=== PATIENT | male | born 1965 | race Caucasian/White ===

== ENCOUNTER 2016-12-08 06:39 | Inpatient (IN) | payer OTHER ==
[2016-11-20 12:50] VITALS: BMI 29.0
--- NOTE | 2016-11-20 13:26 | PAT Medication Instructions ---
Service Date Nov 20, 2016. Current Home Medication List Coenzyme Q10 (Ubidecarenone) (Coq10), 200 MG PO QAM Fish Oil ([place]-3), 1 CAP PO BID Meloxicam (Mobic), 15 MG PO QAM Simvastatin (Zocor), 20 MG PO QPM [Dr Rhina Najera], 1 DOSE PO UD PRN for AILY Medication Instructions For Your Scheduled Surgery Dr Rhina Najera 1 DOSE PO UD PRN for DAILY (take as directed) - Hold the following medications 10 days prior to surgery: Coenzyme Q10 (Ubidecarenone) (Coq10), 200 MG PO QAM Fish Oil ([place]-3), 1 CAP PO BID Meloxicam (Mobic), 15 MG PO QAM (per surgeon instructions) - Take the following medications as scheduled the night before surgery: Simvastatin (Zocor), 20 MG PO QPM If you have any questions please call us at [phone] or [phone] ( Pauline) or [phone]
--- NOTE | 2016-11-20 14:08 | DIAGNOSTIC IMAGING REPORT ---
CHEST PREADMISSION(PA/LAT) CLINICAL HISTORY: Preoperative chest COMPARISON STUDY: No previous studies for comparison. FINDINGS: The heart is the upper limits of normal in size. There is no lobar consolidation. There is no failure. There are linear areas of scar/atelectatic change at the left lung base. There is a 9 mm right midlung zone pulmonary nodule.[ IMPRESSION: 9 mm right midlung zone point nodule. A CT scan the chest is recommended to determine whether this is calcified. Electronically signed by: Lobo Weaver M.D. 11/20/2016 2:07 PM Dictated Date/Time: 11/20/2016 2:06 PM
[2016-11-20 14:44] LABS: URINE APPEARANCE CLEAR (CLEAR); URINE BILIRUBIN NEG (NEG); URINE COLOR DK YELLOW; URINE NITRITE NEG (NEG); URINE PH 5.5 (4.5-7.5); URINE SPECIFIC GRAVITY 1.015 (1.000-1.030); UROBILINOGEN NEG (NEG); ZZUR CULT IF INDIC CLEAN CATCH NO
[2016-11-20 14:57] LABS: MANUAL MICROSCOPIC REQUIRED? NO; REVIEW REQ? NO
--- NOTE | 2016-12-04 09:15 | HISTORY & PHYSICAL EXAMINATION ---
DATE OF ADMISSION: 12/08/2016 CHIEF COMPLAINT: Right hip pain. HISTORY OF PRESENT ILLNESS: Mr. Kennedy is a 51-year-old male with a 1 year history of right hip pain. He rates his pain an 8/10. He has pain with his daily activities. He has limited standing and walking tolerance. Pain is worse with weightbearing. The patient has had previous epidural injections with minimal relief. He has had home exercise program and NSAIDs without relief. He has failed conservative treatment and is scheduled for right hip replacement. PAST MEDICAL HISTORY: Hypercholesterolemia, history of DVT, history of bilateral PE. He denies heart disease or diabetes. PAST SURGICAL HISTORY: Hernia repair, bunionectomy, vein stripping and carpal tunnel release. SOCIAL HISTORY: The patient denies alcohol or tobacco use. He lives in a single story home. He is and works in maintenance. FAMILY HISTORY: Negative for DVT, PE. MEDICATIONS: Fish oil 1000 mg twice daily, CoQ10 200 mg daily, meloxicam 15 mg daily, simvastatin 20 mg daily, multivitamin 1 daily. ALLERGIES: None. REVIEW OF SYSTEMS: See HPI. Ten other systems reviewed, all negative. PHYSICAL EXAMINATION: VITAL SIGNS: Height 6 foot 0. Weight 220 pounds. BMI is 30. GENERAL: This is a well-developed, well-nourished male who is alert and oriented x3. Mood and affect are appropriate. HEAD, EYES, EARS, NOSE, AND THROAT: Normocephalic, atraumatic. Mucous membranes are moist and intact. NECK: Supple without lymphadenopathy. HEART: Regular rate and rhythm without murmurs, rubs or gallops. LUNGS: Clear to auscultation without wheezes or rhonchi. ABDOMEN: Soft and nontender. Bowel sounds are equal and active. EXTREMITIES: No ecchymosis, redness or warmth. Thigh and calf are soft and nontender. Log roll of the hip reproduces pain in the groin. Range of motion is decreased. He is neurovascularly intact with +5/5 strength. X-RAY EXAMINATION: AP and lateral views show joint space narrowing and osteophyte formation. IMPRESSION: Degenerative joint disease, right hip. PLAN: The patient will be admitted for either a right total hip arthroplasty versus a right hip resurfacing. We will likely put him on more aggressive DVT prophylaxis due to his history of DVT and PE. He will have home physical therapy. PCP is Dr. Jac Irvin at [facility].
[2016-12-08] VITALS (8 sets, daily range): BP systolic 100–148; BP diastolic 59–87; PULSE 58–71; TEMP 36.3–36.8; O2SAT 93–96; Ht 185.4 cm; Wt 99.8 kg
[~2016-12-08] VITALS: Ht 185.4 cm; Wt 99.8 kg
[~2016-12-08 06:39] MED LIST: ACETAMINOPHEN 500 MG TAB PO SCH; BUPIVACAINE 0.5 % 5 MG/1 ML PF 10ML VIAL ONE; CEFAZOLIN 2000 MG/60 ML D5W 60 ML IV SCH; COEN1CAP7 PO; CeleBREX 200 MG CAP PO SCH; DEXAMETHASONE 4 MG TAB PO SCH; FAMOTIDINE 20 MG TAB PO SCH; GABAPENTIN 300 MG CAP PO SCH; LACTATED RINGER'S 1000ML 1,000 ML IV SCH; LACTATED RINGER'S 1000ML 500 ML IV SCH; LACTATED RINGER'S 1000ML IV SCH; MELO7.5T5 PO; METOCLOPRAMIDE HCL 10 MG TAB PO SCH; OMEG10007 PO; OXYCODONE HCL 10 MG TABCR (OXYCONTIN) PO SCH; POLYMYXIN B SULFATE 100,000 UNITS in NSS 100ML IR SCH; ROPIVACAINE 5MG/ML 30 ML 150 MG, BUPIVACAINE/EPINEPHR 0.5% MPF 30 ML, KETOROLAC TROMETH... INFIL SCH; SIMV20TA2 PO; TRANEXAMIC ACID INJ 1,000 MG in SODIUM CHLORIDE 0.9% 100ML 100 ML IV SCH; VANCOMYCIN INJ 400 MG in NSS 100ML IR SCH; [UNRECOGNIZED DRUG - REMARK] PO
--- NOTE | 2016-12-08 07:29 | Surgery Consultation ---
Consultation Date of Service Dec 08, 2016. Chief Complaint Hx of PE and DVT History of Present Illness The patient is a 51 year old male who is here for knee surgery. Previously he had a bunionectomy and developed DVT along with bilateral PE's. He is not on anticoagulation at this time. He well not be able to be on anticoagulation immediate post op from his knee. He is admitted for a removable filter placement. Allergies Coded Allergies: No Known Allergies (Unverified , 12/08/16) Home Medications Scheduled Coenzyme Q10 (Ubidecarenone) (Coq10), 200 MG PO QAM Fish Oil ([place]-3), 1 CAP PO BID Meloxicam (Mobic), 15 MG PO QAM Simvastatin (Zocor), 20 MG PO QPM Scheduled PRN [Dr Rhina Najera], 1 DOSE PO UD PRN for AILY Surgical / Medical History Hx Cardiac Surgery: No Hx Abdominal Surgery: Yes (APPENDECTOMY,HERNIA) Hx Cancer Surgery: No Hx Thoracic Surgery: No Hx Orthopedic: Yes (R BUNIONECTOMY X 2, R CTR, L CTR) Hx Urinary Tract Surgery: No HX Other Surgery: Yes (SEE TEXT) Past Medical/Surgical History: High Cholesterol, Pulmonary Emboli, Thrombophlebitis Social History Smoking Status: Never Smoker Hx Alcohol Use - Type & Amnt: No Hx Substance Use -Type & Amnt: No Review of Systems Constitutional: No chills, No diaphoresis, No fatigue, No fever, No malaise, No problem reported, No sweats, No weakness, No weight gain, No weight loss Respiratory: No GRAY, No PND, No cough, No cyanosis, No dyspnea, No hemoptysis, No orthopnea, No problem reported, No short of breath, No sputum production, No stridor, No wheezing Cardiovascular: No chest pain, No chest pressure, No chest tightness, No cyanosis, No diaphoresis, No edema, No intermittent claudication, No lightheadedness, No mumur, No orthopnea, No palpitations, No paroxysmal nocturnal dyspnea, No problem reported, No syncope Gastrointestinal: No abdominal pain, No anorexia, No appetite changes, No belching, No constipation, No diarrhea, No dysphagia, No flatulence, No food intolerance, No heartburn, No hematemesis, No hematochezia, No hemorrhoids, No indigestion, No nausea, No problem reported, No rectal bleeding, No stool changes, No vomiting Genitourinary - Male: No difficulty urinating, No hematuria, No impotence, No penile discharge, No penile itching, No problem reported, No rash, No testicular pain, No testicular swelling Musculoskeletal: + joint pain Neurologic: No LOC, No dizziness, No headache, No lethargy, No memory loss, No numbness, No paresthesia, No pre-existing deficit, No problem reported, No seizures, No tics, No tingling, No tremors, No vertigo, No weakness Physical Exam Constitutional: General Apperance: heathly-appearing, well-nourished, well-developed Level of Distress: NAD Ambulation: ambulating normally Psychiatric: Mental Status: active & alert, normal mood, normal affect Orientation: oriented except where noted, to time, to place, to person Memory: recent memory normal, remote memory normal Lungs: Auscultation: breath sounds normal Cardiovascular: Heart Auscultation: RRR Peripheral Pulses: Radial Pulse: normal on the left, normal on the right Femoral Pulse: normal on the left, normal on the right Abdomen: Inspection & Palpation: soft Musculoskeletal: normal Extremities: Upper Right: no cyanosis, no edema, no varicosities, no palpable cord, no clubbing, no ulcers, no mottling Upper Left: no cyanosis, no edema, no palpable cord, no clubbing, no ulcers , no mottling Lower Right: no cyanosis, no edema, no varicosities, no palpable cord, no clubbing, no ulcers, no mottling Lower Left: no cyanosis, no edema, no varicosities, no palpable cord, no clubbing, no ulcers, no mottling Neurologic: Cranial Nerves: grossly intact Sensation: grossly intact Assessment and Plan Imp: Arthritis knee joint Hx of DVT and PE Plan: Patient is to have a filter placed prior to his knee surgery. I have discussed the risks options and benefits of the procedure with the patient. The patient understands the risks options and benefits and agrees to the procedure.
[2016-12-08] MEDS ORDERED: NURSING VERBAL MED ORDER ONE (07:45)
[2016-12-08] MEDS ORDERED: FENTANYL CITRATE INJ 50 MCG/1 ML 2 ML VIAL ONE ×2 (07:45→11:41)
[2016-12-08] MEDS ORDERED: MIDAZOLAM HCL 1 MG/ML 2ML VIAL ONE ×3 (07:46→11:41)
[2016-12-08] MEDS ORDERED: CEFAZOLIN SOD 1000MG/55 ML D5W IV ONE (07:51)
[2016-12-08] MEDS ORDERED: LIDOCAINE HCL 1% 20 ML VIAL INJ ONE (08:20)
[2016-12-08] MEDS ORDERED: IODIXANOL (VISIPAQUE) 270 MG/ML 50ML XX ONE (08:28)
--- NOTE | 2016-12-08 08:32 | [facility] Post Operative Brief Note ---
Immediate Operative Summary Operative Date Dec 08, 2016. Pre-Operative Diagnosis History of DVT and PE, pre op knee surgery Post-Operative Diagnosis same Procedure(s) Performed Insertion Of Inferior Vena Cava Filter, Right Jugular Approach, Surgeon Dr. Castillo Mushroom Laborer Surgeon(s) none Estimated Blood Loss 0 Findings filter in infrarenal IVC in upright position Specimens none Anesthesia Local Complication(s) None Disposition
--- NOTE | 2016-12-08 08:48 | DIAGNOSTIC IMAGING REPORT ---
DATE OF PROCEDURE: 12/08/2016 PREOPERATIVE DIAGNOSES: History of deep venous thrombosis and bilateral pulmonary emboli. He is preop for knee surgery. POSTOPERATIVE DIAGNOSES: Same. PROCEDURE: Insertion of inferior vena cava filter, jugular approach. SURGEON: Dr. Castillo. ANESTHETIC: Local. PROCEDURE INDICATIONS: The patient is a 51-year-old gentleman for knee surgery who 5 years ago had a bunionectomy with subsequent deep venous thrombosis and bilateral pulmonary emboli. There is concern about him having being immobile and developing more clots during the period where he cannot be anticoagulated after his knee surgery, therefore, a temporary filter was recommended. He understood the risks, options and benefits and agreed to go ahead with the procedure. The patient was taken to the angiogram suite, placed in the supine position after the right side of the neck was prepped and draped in a sterile manner. The ultrasound was used to locate the right internal jugular vein. The right internal jugular vein was then punctured under direct ultrasound imaging, and a guidewire passed centrally. A wire was passed into the inferior vena cava. The puncture site was then dilated and the filter sheath was inserted. The vena cavogram was then performed. This showed no evidence of cava clot. The cava was of good size. The filter was then inserted and deployed in a nice upright position below the renal veins. The sheath was then pulled. Pressure was applied. Adequate hemostasis was obtained. Sterile dressing were applied to the wound. The patient left the angiogram suite in good condition. He tolerated the procedure well.
--- NOTE | 2016-12-08 08:53 | Medical Student: [facility] ---
Immediate Operative Summary Operative Date Dec 08, 2016. Pre-Operative Diagnosis Contraindication to anticoagulation therapy Post-Operative Diagnosis same Procedure(s) Performed Placement of retrievable IVC filter, R. IJV approach w ultrasound localization. Positioning of filter confirmed by fluoroscopy. Surgeon Dr. Castillo Community Relations Director Surgeon(s) none Estimated Blood Loss 0cc Findings filter in infrarenal IVC Specimens none Anesthesia local Complication(s) None Disposition Recovery Room / PACU
--- NOTE | 2016-12-08 11:21 | History & Physical Bridge Note ---
H&P Re-Evaluation Bridge Note: I have examined the patient, reviewed the History & Physical and in the interval since the performance of the History & Physical I have noted the following changes of clinical significance: No changes noted
[2016-12-08] MEDS ORDERED: NURSING VERBAL MED ORDER STA (11:32)
[2016-12-08] MEDS ORDERED: LIDOCAINE HCL 2% 2 ML VIAL (20MG/ML) ONE (11:40)
[2016-12-08] MEDS ORDERED: PROPOFOL IV EMULSION 10 MG/ML 20 ML VIAL IV ONE (11:40)
[2016-12-08] MEDS ORDERED: LACTATED RINGER'S 1000ML 1,000 ML IV PRN (11:49)
[2016-12-08] MEDS ORDERED: FENTANYL CITRATE INJ 50 MCG/1 ML 2 ML VIAL IV PRN (12:00)
[2016-12-08] MEDS ORDERED: ONDANSETRON INJ 2 MG/ML 2 ML VIAL IV PRN ×2 (12:00→15:00)
[2016-12-08] MEDS ORDERED: BACITRACIN 50000 UNIT VIAL ONE (12:02)
[2016-12-08] MEDS ORDERED: ORTHO JOINT ANESTHETIC ONE (12:02)
[2016-12-08] MEDS ORDERED: POVIDONE-IODINE OP SOLN 30 ML BTL ONE (12:02)
[2016-12-08] MEDS ORDERED: LABETALOL HCL IV 5 MG/ML 20ML IV ONE (14:17)
--- NOTE | 2016-12-08 14:42 | DIAGNOSTIC IMAGING REPORT ---
RIGHT HIP UNILATERAL 1 VIEW CLINICAL HISTORY: RT TOTAL ANTERIOR Right COMPARISON STUDY: None. FINDINGS: Fluoroscopy time 25 seconds. Single fluoroscopic spot image. Right total hip arthroplasty. The visualized hardware appears intact. No fracture or dislocation. IMPRESSION: Fluoroscopy provided for a right total hip arthroplasty. Electronically signed by: Jaya Griffith M.D. 12/08/2016 2:40 PM Dictated Date/Time: 12/08/2016 2:40 PM
--- NOTE | 2016-12-08 14:54 | [facility] Post Operative Brief Note ---
Immediate Operative Summary Operative Date Dec 08, 2016. Pre-Operative Diagnosis Right Hip Degenerative Joint Disease Post-Operative Diagnosis Right Hip Degenerative Joint Disease Procedure(s) Performed Right Total Hip Arthroplasty, Direct Anterior Approach Surgeon Dr. Jarek Lantigua Entry Level Management Surgeon(s) Van Bedolla PA-C Estimated Blood Loss 350ML Findings DJD Specimens A: Right Femoral Head Complication(s) None Disposition Recovery Room / PACU
[2016-12-08] MEDS ORDERED: ALUMINUM/MAGNESIUM/SIMETH (MAALOX MAX) 30 ML UDC PO PRN (15:00)
[2016-12-08] MEDS ORDERED: ZOLPIDEM TARTRATE 5 MG TAB PO PRN (15:00)
[2016-12-08] MEDS ORDERED: SOD PHOSPHATE/SOD BIPHOSPHATE ENEMA 132 ML BTL PR PRN (15:00)
[2016-12-08] MEDS ORDERED: METOCLOPRAMIDE HCL INJ 5 MG/ML 2 ML VIAL IV PRN (15:00)
[2016-12-08] MEDS ORDERED: MoRPHine SULFATE 2 MG/ML CARP IV PRN (15:00)
[2016-12-08] MEDS ORDERED: MAGNESIUM HYDROXIDE SUSP 30 ML UDC PO PRN (15:00)
[2016-12-08] MEDS ORDERED: DiphenhydrAMINE HCL 50 MG/ML VIAL IV PRN (15:00)
[2016-12-08] MEDS ORDERED: BISACODYL 10 MG SUPP PR PRN (15:00)
[2016-12-08] MEDS ORDERED: TRAMADOL HCL 50 MG TAB PO PRN (15:00)
[2016-12-08] MEDS ORDERED: OXYCODONE HCL IR 5 MG TAB (IMMEDIATE RELEASE) PO PRN (15:00)
--- NOTE | 2016-12-08 15:22 | Anesthesiology Progress Note ---
Anesthesia Post Op Note Date & Time Dec 08, 2016 at 15:21 Vital Signs Pain Intensity: 0 Vital Signs Past 12 Hours Date Time Temp Pulse Resp B/P Pulse Ox O2 Delivery O2 Flow Rate FiO2 12/08/16 15:05 58 12 94/57 95 Nasal Cannula 4 12/08/16 14:55 59 12 83/57 94 Nasal Cannula 4 12/08/16 14:46 37.2 78 12 103/60 94 Nasal Cannula 4 12/08/16 09:15 62 16 137/84 92 Room Air 12/08/16 09:00 55 16 124/83 93 Room Air 12/08/16 08:48 64 16 138/94 93 Room Air 12/08/16 07:12 36.7 71 18 143/87 93 Room Air Notes Mental Status: alert / awake / arousable, participated in evaluation Pt Amnestic to Procedure: Yes Nausea / Vomiting: adequately controlled Pain: adequately controlled Airway Patency, RR, SpO2: stable & adequate BP & HR: stable & adequate Hydration State: stable & adequate Anesthetic Complications: no major complications apparent
--- NOTE | 2016-12-08 15:38 | OPERATIVE REPORT ---
DATE OF OPERATION: 12/08/2016 PREOPERATIVE DIAGNOSIS: Degenerative arthritis, right hip. POSTOPERATIVE DIAGNOSIS: Same. PROCEDURE: Right total hip replacement. SURGEON: Jarek Lantigua MD AIR DIRECTOR: None. ANESTHESIA: Spinal. BLOOD LOSS: 350 mL. REPLACEMENT FLUIDS: 2300 mL crystalloid. DRAINS: Hemovac x2. CULTURES: None. COMPLICATIONS: None. COMPONENTS USED: [employer] Nephew Polar hip system: Acetabulum size 58, femur size 3 high offset, femoral head +8, 36 mm. DESCRIPTION OF PROCEDURE: Following satisfactory spinal, the patient was supine. The right leg was placed in the traction device and the left leg in the well leg hernandez. The right leg was prepared with ChloraPrep and draped sterilely. Following a surgical time-out, an anterior approach was performed in the interval between the sartorius and tensor muscles. The circumflex femoral vessels were identified and ligated, but there was general oozing throughout the procedure. An anterior capsulotomy was performed. The exposure was difficult at this time. The femoral neck and head were trimmed and removed. The acetabular retractor was placed. Acetabular reaming was completed and a 58 shell was impacted under fluoroscopic guidance. The shell was difficult to get into position. It did not seem to want to seat and after repeat reaming, the shell was secured using 3 dome screws. Local anesthetic was placed and after irrigation, the poly liner was placed. The femur was then placed in a position of external rotation, extension and adduction. Femoral canal was difficult also. It was prepared up to a size 3. The patient had an extremely long neck and the +8 show the best leg length on fluoroscopy. The hip was dislocated. The trial component removed. The final implant was placed and the hip was reduced fluoroscopy confirming the position. A Betadine soak was performed. After 5 minutes, the Betadine was irrigated. The capsule was closed with 1 Vicryl interrupted. A drain was placed. After irrigation, the muscle fascia was closed with a running suture of 1 Vicryl. The subcutaneous tissues with 2-0 Vicryl and the skin with a running subcuticular stitch of 3-0 V-Loc. Dermabond and a dry dressing were applied. It should be noted that upon taking the drapes off, the patient's leg lengths were of unequal height. The bed was much lower than it was anticipated at the beginning of the case. This may have led to some of the difficulty. The reason for the change in height is uncertain as height was set appropriately preoperative. I attest to the content of the Intraoperative Record and any orders documented therein. Any exceptions are noted below. SAMARAD
--- NOTE | 2016-12-08 15:49 | DIAGNOSTIC IMAGING REPORT ---
RIGHT PELVIS/UNILATERAL HIP 1 VIEW CLINICAL HISTORY: IN PACU - A/P PELVIS and LATERAL HIP INCLUDING ALL OF IMPLANT Right COMPARISON: None. DISCUSSION: Total right hip replacement. Prosthetic is in good position. Surgical drains and expected changes within the soft tissues are noted. IMPRESSION: Anatomic alignment status post total right hip replacement Electronically signed by: Vini Mcgregor M.D. 12/08/2016 3:47 PM Dictated Date/Time: 12/08/2016 3:47 PM
[2016-12-08] MEDS: D5W AND 1/2NSS + 20MEQ KCL 1,000 ML IV SCH (17:09)
[2016-12-08] MEDS: KETOROLAC TROMETHAMINE 30 MG/ML VIAL IV. SCH (17:44)
[2016-12-08] MEDS: CEFAZOLIN IV 2,000 MG in DEXTROSE 5% 50ML 50 ML IV SCH (19:58)
[2016-12-08] MEDS: SIMVASTATIN 20 MG TAB PO SCH (21:04)
[2016-12-08] MEDS: SENNA 8.6 MG TAB PO SCH (21:04)
[2016-12-08] MEDS: ACETAMINOPHEN 500 MG TAB PO SCH (21:55)
[2016-12-08] MEDS ORDERED: SODIUM CHLORIDE 0.9% 500ML 500 ML IV SCH (22:30)
--- NOTE | 2016-12-08 23:01 | DIAGNOSTIC IMAGING REPORT ---
CT HEAD WITHOUT CONTRAST (CT) CLINICAL HISTORY: Head pain. Head trauma COMPARISON STUDY: No previous studies for comparison. TECHNIQUE: Axial CT of the brain is performed from the vertex to the skull base. IV contrast was not administered for this examination. CT DOSE: 965.19 mGycm FINDINGS: No intra or extra-axial mass lesions are visualized. There is no CT evidence of acute cortical infarction. There is no evidence of midline shift. There is no acute hemorrhage. No calvarial fractures are visualized. There is a nonspecific subtle left parietal white matter hypodensity, likely on a small vessel basis. There is no evidence of pathologic ventricular dilatation. There is no evidence of acute sinusitis There is prominent calcification/ossification of the falx anteriorly. IMPRESSION: No acute intracranial findings Electronically signed by: Lobo Weaver M.D. 12/08/2016 10:59 PM Dictated Date/Time: 12/08/2016 10:57 PM
--- NOTE | 2016-12-08 23:20 | Progress Note ---
Progress Note Date of Service Dec 08, 2016. Progress Note Code juancarlos was called around 10 PM after the patient had felt dizzy and fallen in the bathroom . Per RN notes, had fallen a second time while she was trying to help him. He had lost consciousness for a few minutes but had soon regained consciousness and was awake and alert and oriented. He sustained a laceration to his forehead and and an abrasion to his nose. On examination, he was answering questions appropriately and denied any chest pain, shortness of breath, palpitations which had occurred prior to the fall. He stated that he felt dizzy. No seizure-like activity was witnessed prior to fall. He is status post right hip replacement and denied any pain, deformity of the operated limb. Denied any headaches, blurriness of vision, weakness, numbness or tingling He denied any recent anticoagulant use though he had used Coumadin about 5 years ago for DVTs. His vitals were stable with blood pressure 117/85, heart rate of 70 and satting over 95. Physical exam: Awake alert and oriented -Lungs clear bilaterally - RRR, S1 and S2 heard - Abdomen soft and nontender -MSK: Normal-appearing extremities with no deformity. EKG was obtained which was normal, blood sugar was checked which was 147. Head CT was ordered which showed no acute changes. A/P: Fall secondary to dizziness likely vasovagal Head CT negative ,EKG normal - Scalp laceration repaired with sutures -Reassured Resident Tracking Resident Involvement: Photograph Inspector Coverage Note Care Provided: [facility] Medicine
[2016-12-09] MEDS: KETOROLAC TROMETHAMINE 30 MG/ML VIAL IV. SCH ×5 (00:37→23:51)
[2016-12-09 00:40] VITALS: BP 127/72; PULSE 66
[2016-12-09] MEDS ORDERED: LIDOCAINE HCL 1% 20 ML VIAL ONE (01:01)
[2016-12-09 03:18] VITALS: BP 112/64; PULSE 68; TEMP 36.6; O2SAT 94
[2016-12-09] MEDS: CEFAZOLIN IV 2,000 MG in DEXTROSE 5% 50ML 50 ML IV SCH (03:59)
[2016-12-09] MEDS: D5W AND 1/2NSS + 20MEQ KCL 1,000 ML IV SCH ×2 (03:59→12:04)
--- NOTE | 2016-12-09 04:24 | Procedure Note ---
Procedure Note Date of Service Dec 09, 2016. Procedure Note Laceration repair: Location: forehead Total length: 2 cm Complexity: simple Verbal consent was obtained after the risks and benefits were explained, including but not limited to bleeding, scarring, infection, pain, and bone/joint /nerve damage. At this time, the risks of the procedure are less than the risks of NOT performing the procedure. A time out was taken and the correct patient and site identified.The target area was anesthetized with 2 ml of 1% lidocaine without epinephrine. CThe wound edges were approximated using 2, 5-0 simple interrupted nylon sutures. Hemostasis and excellent approximation was achieved. sterile dressing applied. . No complications and the patient tolerated the procedure well. Resident Tracking Resident Involvement: Stand Up Forklift Operator Coverage Note Care Provided: Adult [facility] Medicine
[2016-12-09 06:02] LABS: HEMATOCRIT 32.9 % (42-52); MEAN CELL VOLUME 88.4 fL (80-100); MEAN CORPUSCULAR HEMOGLOBIN 29.8 pg (25-34); MEAN CORPUSCULAR HGB CONC 33.7 g/dl (32-36); MEAN PLATELET VOLUME 10.5 fL (7.4-10.4); PLATELET COUNT 138 K/uL (130-400); RED BLOOD COUNT 3.72 M/uL (4.7-6.1); WHITE BLOOD COUNT 11.37 K/uL (4.8-10.8)
[2016-12-09] MEDS: ACETAMINOPHEN 500 MG TAB PO SCH ×3 (06:02→21:57)
[2016-12-09 06:35] LABS: COMPLETE YES; EOS % 0.1 %; IG% 0.2 %; LYMPH % 7.9 %; MONO % 10.6 %; NEUT % 81.2 %
[2016-12-09 06:37] LABS: BUN/CREATININE RATIO 17.8 (10-20); CALCIUM 7.9 mg/dl (8.5-10.1); CREATININE 0.85 mg/dl (0.60-1.40); POTASSIUM 4.2 mmol/L (3.5-5.1)
[2016-12-09 06:53] VITALS: BP 116/65; PULSE 78; TEMP 36.7; O2SAT 95
--- NOTE | 2016-12-09 07:04 | Discharge Instructions ---
Discharge Instructions Date of Service Dec 09, 2016. Admission Reason for Admission: Right Hip Degenerative Arthritis Discharge Discharge Diagnosis / Problem: Right Hip Djd Discharge Goals Goal(s): Decrease discomfort, Improve function Activity Recommendations Activity Limitations: per Instructions/Follow-up section Weightbearing Status: Right weightbearing (as tolerated) . Instructions / Follow-Up Instructions / Follow-Up ACTIVITY RECOMMENDATIONS: SELF CARE INSTRUCTIONS AFTER TOTAL HIP REPLACEMENT : Direct Anterior Approach Until the incision and soft tissues around your hip have healed, there is a possibility that the hip prosthesis could dislocate. A. Hip flexion ( Up & Down out of chair or steps ) may be difficult. This is normal. B. Numbness in front of the thigh is also normal for a few weeks. C. Use hand rails when walking on stairs. D. Wear low heeled shoes with non-slip soles. E. Be sure that your floors are free of things that could trip you - throw rugs , electrical cords, small objects. Avoid wet and waxed floors, especially with crutches and canes. F. Try to walk several times a day with rest periods between. G. Continue with all the exercises taught to you in the hospital. Again, make walking a part of your daily routine. SPECIAL CARE INSTRUCTIONS: VERY IMPORTANT TO READ AND REVIEW A. You may still be at risk for phlebitis and blood clots. 1. Wear surgical stockings (RAKEL hose) for 2 weeks after surgery to improve circulation and reduce swelling. 2. Take Lovenox 40mg injection for 2 weeks or as directed by your doctor. After 2 weeks, stop the Lovenox and start Aspirin 81mg once in the morning and once in the evening for 2 weeks. These are your blood thinners. 3. High risk patients may be prescribed a stronger blood thinner if necessary. 4. If you are on Coumadin normally, your family doctor/ washhouse hand should monitor your blood work. Expect a phone call the day of or the day after bloodwork is drawn to adjust your dosage. B. You must take antibiotics before having dental work, bladder, bowel and other surgery. Your doctor will provide you with a permanent card to carry describing precautions. C. Call [facility] if you have a fever, redness or swelling around the incision, cloudy drainage from incision, or sudden increase in pain in your hip, not relieved by your regular pain medication. D. Please call the office at if you have any concerns or questions about your operation or recovery. * YOU MAY SHOWER, NO TUB BATHS UNTIL CLEARED BY YOUR DOCTOR. - Keep an extra close eye on the top portion of your incision. Be sure to keep clean & dry. * WEAR RAKEL HOSE 20 HOURS PER DAY FOR 2 WEEKS. * YOU MAY PROGRESS FROM A WALKER, TO A CANE, TO INDEPENDENT AT YOUR OWN PACE. * MOST PATIENTS WILL HAVE HOME NURSING FOR THERAPY. IF YOU DECIDE TO DO OUTPATIENT PHYSICAL THERAPY, PLEASE SCHEDULE THIS 3 TIMES PER WEEK. * DERMABOND Prineo- This is a mesh tape dressing that is covered with glue. It should remain in place until the incision is properly healed, usually 10-14 days. This dressing is designed to naturally slough off. You may trim the excess mesh tape as it peels off. Incision may be briefly wet in a shower. Dry immediately by blotting with a clean, dry towel. Do not bath or swim until instructed by your doctor. Do not scratch, rub, or pick at the dressing. Do not apply any topical ointments or lotions until dressing is completely removed and/or instructed by your doctor. There may be a small piece of suture material at one end of your incision. Do not pull or trim this. If it is bothersome or catching on clothing, you may cover it with a band-aid. FOLLOW UP VISIT: If appointment is not already scheduled: Please call [facility] to make a follow-up appointment for 2 weeks after your surgery at . Current Hospital Diet Patient's current hospital diet: Regular Diet Discharge Diet Recommended Diet: Regular Diet Procedures Procedures Performed: Right Total Hip Arthroplasty, Direct Anterior Approach Pending Studies Studies pending at discharge: no Medical Emergencies . Who to Call and When: Medical Emergencies: If at any time you feel your situation is an emergency, please call 911 immediately. . Non-Emergent Contact Non-Emergency issues call your: Surgeon Call Non-Emergent contact if: temperature is above 101.5, your pain is not controlled, your pain is worsening, wound has increased drainage, wound has increased redness . "Provider Documentation" section prepared by Van Bedolla. VTE Core Measure Inpt VTE Proph given/why not?: Enoxaparin (Lovenox)SQ, T.E.D. Stockings, SCD's [place] Drug Monitoring Program Search Results: patient reviewed within database, no issues identified
--- NOTE | 2016-12-09 08:02 | Anesthesiology Progress Note ---
Anesthesia Post Op Note Date & Time Dec 09, 2016 at 07:58 Vital Signs Pain Intensity: 0.0 Vital Signs Past 12 Hours Date Time Temp Pulse Resp B/P Pulse Ox O2 Delivery O2 Flow Rate FiO2 12/09/16 07:52 Room Air 12/09/16 06:53 36.7 78 19 116/65 95 Room Air 12/09/16 03:18 36.6 68 16 112/64 94 Room Air 12/09/16 00:40 66 127/72 12/08/16 23:30 Room Air 12/08/16 23:07 36.5 67 17 108/65 95 Room Air 12/08/16 22:20 36.4 71 18 117/62 95 Room Air Notes Mental Status: alert / awake / arousable, participated in evaluation Pt Amnestic to Procedure: Yes Nausea / Vomiting: adequately controlled Pain: adequately controlled Airway Patency, RR, SpO2: stable & adequate BP & HR: stable & adequate Hydration State: stable & adequate Anesthetic Complications: no major complications apparent Anesthetic Complications: Patient passed out in bathroom last night. Walked to bathroom, called for nurse , felt lightheaded, passed out. Hit head and nose. Was sent to the ER for sutures. No further episodes. Patients states he feels better today.
--- NOTE | 2016-12-09 08:03 | Orthopedic Progress Note ---
Orthopedic Progress Note Date of Service Dec 09, 2016. Subjective Post OP Day: 1 Reports: feeling well, Denies: SOB, calf pain, chest pain, light headedness, nausea / vomiting Additional Notes: CODE BETSEY WAS CALLED LAST NIGHT. PATIENT FELL. HE SUFFERED A HEAD LACERATION AND AN ABRASION TO THE NOSE. NO NEW COMPLAINTS OF HIP PAIN. MEDICINE WAS CONSULTED FOR EVALUATION. WORKUP NEGATIVE. LACERATION WAS REPAIRED. Objective calves soft nontender, N/V intact, hip located, dressing C/D/I, A&O x3, toes mobile, hemovac drainage (650/350CC PER SHIFT) Date Time Temp Pulse Resp B/P Pulse Ox O2 Delivery O2 Flow Rate FiO2 12/09/16 07:52 Room Air 12/09/16 06:53 36.7 78 19 116/65 95 Room Air 12/09/16 03:18 36.6 68 16 112/64 94 Room Air 12/09/16 00:40 66 127/72 12/08/16 23:30 Room Air 12/08/16 23:07 36.5 67 17 108/65 95 Room Air 12/08/16 22:20 36.4 71 18 117/62 95 Room Air 12/08/16 19:10 36.5 60 18 130/80 95 Room Air 12/08/16 18:10 36.4 60 18 148/85 96 Nasal Cannula 2.0 12/08/16 17:13 36.3 58 18 118/68 96 Nasal Cannula 2.0 12/08/16 16:42 36.3 58 18 100/62 94 Nasal Cannula 2.0 12/08/16 16:37 Nasal Cannula 2.0 12/08/16 16:10 95 Nasal Cannula 2.0 12/08/16 16:10 36.8 62 14 105/59 95 Nasal Cannula 2.0 12/08/16 15:55 36.8 75 16 102/61 94 Nasal Cannula 2 12/08/16 15:45 58 16 103/55 94 Nasal Cannula 2 12/08/16 15:35 66 16 100/57 96 Nasal Cannula 2 12/08/16 15:25 66 16 105/59 96 Nasal Cannula 2 12/08/16 15:15 55 12 96/58 95 Nasal Cannula 4 12/08/16 15:05 58 12 94/57 95 Nasal Cannula 4 12/08/16 14:55 59 12 83/57 94 Nasal Cannula 4 12/08/16 14:46 37.2 78 12 103/60 94 Nasal Cannula 4 12/08/16 09:15 62 16 137/84 92 Room Air 12/08/16 09:00 55 16 124/83 93 Room Air 12/08/16 08:48 64 16 138/94 93 Room Air Laboratory Results 24 Hours: Test 12/09/16 05:27 White Blood Count 11.37 K/uL Red Blood Count 3.72 M/uL Hemoglobin 11.1 g/dL Hematocrit 32.9 % Mean Corpuscular Volume 88.4 fL Mean Corpuscular Hemoglobin 29.8 pg Mean Corpuscular Hemoglobin Concent 33.7 g/dl Platelet Count 138 K/uL Mean Platelet Volume 10.5 fL Neutrophils (%) (Auto) 81.2 % Lymphocytes (%) (Auto) 7.9 % Monocytes (%) (Auto) 10.6 % Eosinophils (%) (Auto) 0.1 % Basophils (%) (Auto) 0.0 % Neutrophils # (Auto) 9.23 K/uL Lymphocytes # (Auto) 0.90 K/uL Monocytes # (Auto) 1.21 K/uL Eosinophils # (Auto) 0.01 K/uL Basophils # (Auto) 0.00 K/uL Assessment & Plan Assessment: POD#1 SP RIGHT ANABEL, DIRECT ANTERIOR SYNCOPAL EPISODE HISTORY OF DVT, NEG FACTOR 5. Plan: [facility]- [facility] VAS[facility]. PATIENT EDUCATED ON GETTING UP WITH ASSISTANCE. HISTORY OF DVT- IVC FILTER PLACED YESTERDAY. ON LOVENOX. Inhouse Planning Pain Management: Celebrex, PO Tylenol, Oxy IR DVT Prophylaxis: TEDs, SCDs, Lovenox (40MG DAILY) Discharge Planning Discharge Planning: home with home health ([facility]. [facility]
[2016-12-09] MEDS: MULTIVITAMIN TAB PO SCH (08:38)
[2016-12-09] MEDS: PANTOprazole SOD 40 MG TAB PO SCH (08:38)
[2016-12-09] MEDS: ENOXAPARIN 40 MG/0.4 ML SYR SQ SCH (09:34)
[2016-12-09 11:26] VITALS: BP 119/66; PULSE 73; O2SAT 100
[2016-12-09 15:19] VITALS: BP 125/74; PULSE 86; TEMP 36.8; O2SAT 98
[2016-12-09] MEDS: SIMVASTATIN 20 MG TAB PO SCH (21:56)
[2016-12-09] MEDS: SENNA 8.6 MG TAB PO SCH (21:57)
[2016-12-09 23:11] VITALS: BP 119/68; PULSE 92; TEMP 37; O2SAT 94
[2016-12-10] MEDS: ACETAMINOPHEN 500 MG TAB PO SCH (05:34)
[2016-12-10] MEDS: KETOROLAC TROMETHAMINE 30 MG/ML VIAL IV. SCH ×2 (05:34→12:34)
[2016-12-10 06:19] VITALS: BP 127/71; PULSE 83; TEMP 36.8; O2SAT 93
[2016-12-10] MEDS: PANTOprazole SOD 40 MG TAB PO SCH (07:47)
[2016-12-10] MEDS: MULTIVITAMIN TAB PO SCH (07:47)
[2016-12-10] MEDS: ENOXAPARIN 40 MG/0.4 ML SYR SQ SCH (07:47)
[2016-12-10] MEDS ORDERED: RXC5 PO (07:57)
[2016-12-10] MEDS ORDERED: ACET-1138 PO (07:57)
[2016-12-10] MEDS ORDERED: SNK PO (07:57)
[2016-12-10] MEDS ORDERED: CLB200 PO (07:57)
[2016-12-10] MEDS ORDERED: ONDA8TAB6 PO (07:57)
[2016-12-10] MEDS ORDERED: LVNIS40 SQ (07:59)
--- NOTE | 2016-12-10 08:00 | Orthopedic Progress Note ---
Orthopedic Progress Note Date of Service Dec 10, 2016. Subjective Post OP Day: 2 Reports: feeling well, Denies: complaints Additional Notes: denies Left hip pain Objective calves soft nontender, N/V intact, hip located, incision C/D/I, A&O x3, toes mobile Head laceration benign. Date Time Temp Pulse Resp B/P Pulse Ox O2 Delivery O2 Flow Rate FiO2 12/10/16 06:19 36.8 83 18 127/71 93 Room Air 12/09/16 23:11 37.0 92 18 119/68 94 Room Air 12/09/16 19:30 Room Air 12/09/16 15:19 36.8 86 16 125/74 98 Room Air 12/09/16 11:26 73 100 Assessment & Plan Assessment: POD#2 SP RIGHT ANABEL, DIRECT ANTERIOR SYNCOPAL EPISODE HISTORY OF DVT, NEG FACTOR 5. Plan: SYNCOPE- [facility] VASOVAGAL. PATIENT EDUCATED ON GETTING UP WITH ASSISTANCE. HISTORY OF DVT- IVC FILTER PLACED YESTERDAY. ON LOVENOX. Progressing in PT. Feeling well. Plan for dc to home today. Denies LH when ambulating. Inhouse Planning Pain Management: Celebrex, PO Tylenol, Oxy IR DVT Prophylaxis: TEDs, SCDs, Lovenox (40MG DAILY) Discharge Planning Discharge Planning: home with home health ([facility]. [facility] .) Pain Management: Celebrex, PO Tylenol, Oxy IR DVT Prophylaxis: TEDs, Lovenox Therapy: Physical Therapy
[2016-12-10 08:59] VITALS: BP 160/71
[2016-12-10 09:26] VITALS: BP 160/71; PULSE 83; TEMP 36.8; O2SAT 93
[2016-12-10] MEDS ORDERED: CeleBREX 200 MG CAP PO SCH (21:00)
--- NOTE | 2016-12-16 12:34 | DISCHARGE SUMMARY ---
DISCHARGE DIAGNOSIS: Degenerative joint disease, right hip. SECONDARY DIAGNOSES: Hypercholesterolemia, history of deep venous thrombosis, history of bilateral pulmonary embolism. CONSULTATIONS: Dr. Denis Castillo and Dr. Maritza Mistry. COMPLICATIONS: Vasovagal dizziness with resultant passing out and falling to the floor in the bathroom sustaining a laceration to the forehead on the evening of 12/08/2016. PROCEDURES: 1. Insertion of inferior vena cava filter, right jugular approach by Dr. Castillo on 12/08/2016. 2. Right total hip arthroplasty, direct anterior approach by Dr. Ross Lantigua on 12/08/2016. 3. Laceration repair of forehead by Dr. Mistry on the evening of 12/08/2016. BRIEF HISTORY: As dictated in history and physical. HOSPITAL SUMMARY: The patient was admitted on the above date and had the above-noted surgery performed, which he tolerated well. Inferior vena cava filter was successfully placed and then patient went forward with the total hip arthroplasty. Postoperatively, the patient was doing well; however, in the evening of the 12/08/2016 the patient had gotten up to use the bathroom and became lightheaded, dizzy, passed out and fell to the floor. He had hit his head on the way down and suffered a 2 cm laceration of the forehead. He was seen by Dr. Mistry who was called during the code purple and was examined and the patient was shortly awake after the fall and basically was answering all questions appropriately and was feeling fine. His laceration was repaired by Dr. Mistry at that time and the patient was closely watched during the evening. By the following morning, he was feeling well and had no complaints. Calves were soft and nontender. Neurovascularly intact. Hip was located. Dressings clean, dry and intact. Toes were mobile. Vital signs were stable. He was afebrile and hemoglobin was 11.1. He was started on physical therapy protocol and continued on DVT prophylaxis and pain management and was otherwise remaining fine. The rest of his stay was essentially uneventful and by 12/10/2016 he was feeling well. He denied left hip pain. Calves were soft and nontender. Neurovascularly intact. Hip was located. Incision was clean, dry and intact. Toes were mobile. Head laceration was benign. Vital signs were stable. He was afebrile. He was progressing well with his physical therapy and remaining stable and it was felt that he could be discharged to home. For further review, please see chart. LAB AND X-RAY DATA: As per chart. DISCHARGE INSTRUCTIONS: The patient was discharged to home in satisfactory condition on 12/10/2016. DIET: Regular. ACTIVITY: Weightbearing as tolerated right lower extremity. Follow ANABEL instruction sheets and special care instructions as noted. The patient to follow up with Dr. Lantigua in 2 weeks. The patient to call for appointment if one has not been made for you. Sutures from had wound could be removed in 10-14 days. DISCHARGE MEDICATIONS: Acetaminophen 1000 mg p.o. q. 8 hours for 30 days, Celebrex 200 mg p.o. b.i.d., enoxaparin 40 mg subQ 24 hours for 14 days, Zofran 8 mg p.o. q. 8 hours p.r.n., oxycodone 5-10 mg p.o. q. 4 hours p.r.n., senna 17.2 mg p.o. at bedtime. Resume taking CoQ10 200 mg p.o. q.a.m., fish oil 1 cap p.o. b.i.d., simvastatin 20 mg p.o. q.p.m. and vitamin pack 1 dose p.o. as directed p.r.n. Stop taking Meloxicam. Once enoxaparin has been stopped start taking aspirin 81 mg p.o. b.i.d. for 2 weeks.
== END 2016-12-10 13:37 | disposition home or self-care (01) | DRG 470 ==
LOC: ENRESERVDT → ENRESERVTM → C.ACU 06:39 → C.3E 06:52
PROVIDERS: ADMIT Orthopaedic Surgery; ATTEND Orthopaedic Surgery
PROC: 0SR904Z Replacement of Right Hip Joint with Ceramic on Polyethylene Synthetic Substitute, Open Approach (ICD-10-PCS; 2016-12-08)
PROC: 0HQ0XZZ Repair Scalp Skin, External Approach (ICD-10-PCS; 2016-12-08)
PROC: 06H03DZ Insertion of Intraluminal Device into Inferior Vena Cava, Percutaneous Approach (ICD-10-PCS; principal; 2016-12-08 08:00)
DX: M16.11 Unilateral primary osteoarthritis, right hip (principal); E78.00 Pure hypercholesterolemia, unspecified; R55 Syncope and collapse; S01.01XA Laceration without foreign body of scalp, initial encounter; W19.XXXA Unspecified fall, initial encounter; Y92.231 Patient bathroom in hospital as the place of occurrence of the external cause; F17.290 Nicotine dependence, other tobacco product, uncomplicated; M54.10 Radiculopathy, site unspecified; Z86.711 Personal history of pulmonary embolism; Z79.1 Long term (current) use of non-steroidal anti-inflammatories (NSAID); Z79.899 Other long term (current) drug therapy; Z86.718 Personal history of other venous thrombosis and embolism